=== PATIENT | female | born 1980 | race Caucasian/White ===

== ENCOUNTER 2024-07-18 13:03 | Inpatient (IN) | payer OTHER ==
[2024-07-18 13:24] VITALS: BMI 24.2
[2024-07-18] MEDS ORDERED: chlordiazePOXIDE HCL 25 MG CAPSULE PO PRN (13:56)
[2024-07-18] MEDS ORDERED: NALOXONE (NARCAN) HCL 4 MG/0.1 ML SPRAY NS PRN (13:58)
[2024-07-18] MEDS ORDERED: LOPERAMIDE HCL 2 MG CAPSULE PO PRN (13:58)
[2024-07-18] MEDS ORDERED: guaiFENesin 600 MG TABLET.ER (FP) PO PRN (13:58)
[2024-07-18] MEDS ORDERED: BENZONATATE 200 MG CAPSULE PO PRN (13:58)
[2024-07-18] MEDS ORDERED: IBUPROFEN 400 MG TABLET (FP) PO PRN (13:58)
[2024-07-18] MEDS ORDERED: POLYETHYLENE GLYCOL (HEALTHYLAX) 3350 17 GM PACKET PO PRN (13:58)
[2024-07-18] MEDS ORDERED: MAG HYDROX/AL HYDROX/SIMETH 30 ML UNIT-DOSE CUP PO PRN (13:58)
[2024-07-18] MEDS ORDERED: P-EPHED 60MG/TRIPROLIDI 2.5MG TABLET PO PRN (13:58)
[2024-07-18] MEDS ORDERED: ONDANSETRON *ODT* 4 MG TABLET SL PRN (13:58)
[2024-07-18] MEDS ORDERED: BISMUTH SUBSALICYLATE 524 MG/30 ML PO PRN (13:58)
[2024-07-18] MEDS ORDERED: DICYCLOMINE HCL 10 MG CAPSULE PO PRN (13:58)
[2024-07-18] MEDS ORDERED: MAGNESIUM HYDROX 2400MG/30ML ORAL SUSPENSION 30 ML CUP PO PRN (13:58)
[2024-07-18] MEDS ORDERED: BACITRACIN ZINC 15 GM TUBE TOPICAL OINTMENT TP PRN (14:11)
[2024-07-18] MEDS ORDERED: methaDONE HCL 10 MG TABLET (FOR DETOX USE ONLY) ONE (14:35)
[2024-07-18] MEDS ORDERED: BUPRENORPHINE/NALOXONE 0.5 MG/0.125 MG FILM ONE (14:36)
[2024-07-18] MEDS: BUPRENORPHINE/NALOXONE 0.5 MG/0.125 MG FILM SL ONE ×2 (14:39→22:11)
[2024-07-18] MEDS: methaDONE HCL 10 MG TABLET (FOR DETOX USE ONLY) PO ONE (14:40)
[2024-07-18] MEDS: GABAPENTIN 400 MG CAPSULE PO SCH (16:04)
[2024-07-18] MEDS: IBUPROFEN 600 MG TABLET (FP) PO PRN (16:04)
[2024-07-18] MEDS: METHOCARBAMOL 500 MG TABLET PO PRN (16:05)
[2024-07-18] MEDS: chlordiazePOXIDE HCL 25 MG CAPSULE PO SCH (16:05)
[2024-07-18] MEDS: NICOTINE 14 MG/24 HOURS TOPICAL PATCH TD SCH (16:56)
[2024-07-18] MEDS: ASPIRIN 325 MG ENTERIC COATED TABLET (FP) PO SCH (17:52)
[2024-07-18] MEDS: NICOTINE POLACRILEX 2 MG GUM BUC PRN (21:13)
[2024-07-18] MEDS: MELATONIN 5 MG TABLETS PO SCH (22:11)
[2024-07-18] MEDS: THIAMINE 100 MG TABLET PO SCH (22:11)
[2024-07-18] MEDS: traZODone HCL 50 MG TABLET (FP) PO SCH (22:11)
[2024-07-19 09:32] LABS: CHLORIDE 106 mmol/L (98-107); SODIUM 144 mmol/L (136-145)
[2024-07-19 09:34] LABS: CALCIUM 8.8 mg/dL (8.5-10.1); HEMATOCRIT 38.4 % (34.1-44.9); HEMOGLOBIN 12.6 g/dL (11.2-15.7); MCHC 32.8 g/dl (32.2-35.5); MEAN CELL VOLUME 88.5 fl (79.4-94.8); MEAN PLT VOLUME 9.9 fl (9.4-12.3); PLATELET COUNT 373 x10^3/uL (182-369); RDW 13.6 % (12.2-17.1)
[2024-07-19 09:35] LABS: ALBUMIN 2.8 g/dl (3.4-5.0); ANION GAP 6 mmol/L (4-13); BLOOD UREA NITROGEN 7.9 mg/dL (7-18); CO2 32 mmol/L (21-32); GLUCOSE,RANDOM 103 mg/dL (74-106)
[2024-07-19 09:38] LABS: CREATININE 0.4 mg/dL (0.55-1.3); SGOT/AST 10 U/L (15-37); SGPT/ALT 13 U/L (13-61)
[2024-07-19 09:41] LABS: ALK PHOS 47 U/L (45-117); TOT PROT 4.9 g/dl (6.4-8.2)
[2024-07-19] MEDS: NICOTINE 21 MG/24 HOURS TOPICAL PATCH TD SCH (09:47)
[2024-07-19] MEDS: PRENATAL VITAMINS W/ FOLIC ACID TABLET (FP) PO SCH (09:47)
[2024-07-19] MEDS: BUPRENORPHINE/NALOXONE 0.5 MG/0.125 MG FILM SL SCH (09:49)
[2024-07-19] MEDS ORDERED: ROSUVASTATIN CA 5 MG TABLET PO SCH (10:00)
[2024-07-19] MEDS: diazePAM 5 MG TABLET PO SCH (10:36)
[2024-07-19] MEDS: POTASSIUM CHLORIDE ORAL LIQUID 20 MEQ/15 ML PO ONE ×2 (10:40→14:40)
[2024-07-19] MEDS: metFORMIN HCL 500 MG TABLET (FP) PO SCH (11:41)
[2024-07-19] MEDS: guaiFENesin/D-METHORPHAN HB 10 ML UNIT-DOSE CUPS PO PRN (11:42)
[2024-07-19] MEDS: BENZOCAINE/MENTHOL (CHLORASEPTIC ) LOZENGE MM PRN (11:43)
[2024-07-19] MEDS: diazePAM 5 MG TABLET PO PRN (14:45)
[2024-07-19] MEDS: MAGNESIUM OXIDE 400 MG TABLET (FP) PO SCH (22:10)
[2024-07-19] MEDS: MELATONIN 5 MG TABLETS PO SCH (22:29)
[2024-07-19] MEDS: ROSUVASTATIN CA 5 MG TABLET PO SCH (23:05)
[2024-07-20] MEDS ORDERED: chlordiazePOXIDE HCL 25 MG CAPSULE PO SCH (05:00)
[2024-07-20] MEDS ORDERED: BUPRENORPHINE/NALOXONE 2 MG/0.5 MG FILM PACKET SL SCH (10:00)
[2024-07-20] MEDS ORDERED: methaDONE HCL 10 MG TABLET (FOR DETOX USE ONLY) PO ONE (10:00)
[2024-07-20] MEDS: hydrOXYzine PAMOATE 25 MG CAPSULE (FP) PO PRN (10:04)
[2024-07-20] MEDS ORDERED: hydrOXYzine PAMOATE 50 MG CAPSULE (FP) PO PRN (10:11)
[2024-07-20] MEDS: methaDONE 40 MG, methaDONE 10 MG PO ONE (10:24)
[2024-07-20] MEDS: HYDROCORTISONE 1% TOPICAL CREAM 30 GM TUBE TP SCH (14:08)
[2024-07-21] MEDS ORDERED: chlordiazePOXIDE HCL 10 MG CAPSULE PO PRN
[2024-07-21] MEDS ORDERED: chlordiazePOXIDE HCL 10 MG CAPSULE PO SCH (05:00)
[2024-07-21] MEDS: diazePAM 5 MG TABLET PO SCH (06:32)
[2024-07-21] MEDS: methaDONE 40 MG, methaDONE 20 MG PO ONE (09:06)
[2024-07-21] MEDS: diphenhydrAMINE HCL 50 MG CAPSULE PO PRN (09:33)
[2024-07-21] MEDS ORDERED: BUPRENORPHINE/NALOXONE 4 MG/1 MG FILM PACKET SL SCH (10:00)
[2024-07-21] MEDS: NICOTINE POLACRILEX 2 MG LOZENGE BC PRN (13:14)
[2024-07-21] MEDS ORDERED: guaiFENesin 200 MG/10 ML 10 ML UNIT-DOSE CUPS PO PRN (15:12)
[2024-07-21] MEDS: BACITRACIN 0.9 GM PACKET TP SCH (15:50)
[2024-07-22] MEDS ORDERED: cloNIDine HCL 0.1 MG TABLET PO PRN
[2024-07-22] MEDS ORDERED: chlordiazePOXIDE HCL 10 MG CAPSULE PO SCH (05:00)
[2024-07-22] MEDS: diazePAM 5 MG TABLET PO SCH (05:47)
[2024-07-22] MEDS: methaDONE 40 MG, methaDONE 30 MG PO ONE (09:43)
[2024-07-22] MEDS ORDERED: BUPRENORPHINE/NALOXONE 8 MG/2 MG FILM PACKET SL SCH (10:00)
[2024-07-22] MEDS ORDERED: methaDONE HCL 10 MG TABLET (FOR DETOX USE ONLY) PO ONE (10:00)
[2024-07-22] MEDS: diazePAM 5 MG TABLET PO ONE (17:33)
[2024-07-22 18:18] VITALS: RESP 16
[2024-07-22 21:33] VITALS: PULSE 98
[2024-07-22] MEDS: ACAMPROSATE CALCIUM 333 MG TABLET.DR PO SCH (22:59)
[2024-07-22] MEDS: ACETAMINOPHEN 325 MG TABLET (FP) PO PRN (23:00)
[2024-07-23] MEDS ORDERED: chlordiazePOXIDE HCL 10 MG CAPSULE PO ONE (05:00)
[2024-07-23] MEDS: diazePAM 5 MG TABLET PO ONE (05:57)
[2024-07-23] MEDS ORDERED: diazePAM 5 MG TABLET PO ONE (06:00)
[2024-07-23 07:08] VITALS: BP 101/60; TEMP 98.9
[2024-07-23] MEDS ORDERED: methaDONE HCL 40 MG DISPERSABLE TABLET PO ONE ×2 (10:00)
[2024-07-23] MEDS ORDERED: BUPRENORPHINE/NALOXONE 8 MG/2 MG FILM PACKET SL SCH (10:00)
== END 2024-07-23 08:52 | disposition home or self-care (01) | DRG 773 ==
LOC: YASAS 13:03 → Y6N 14:48
PROVIDERS: ADMIT Neuromusculoskeletal Medicine & OMM; ATTEND Allergy & Immunology
PROC: HZ2ZZZZ Detoxification Services for Substance Abuse Treatment (ICD-10-PCS; principal; 2024-07-18)
DX: F11.23 Opioid dependence with withdrawal (principal); F10.230 Alcohol dependence with withdrawal, uncomplicated; F13.230 Sedative, hypnotic or anxiolytic dependence with withdrawal, uncomplicated; F14.20 Cocaine dependence, uncomplicated; F12.20 Cannabis dependence, uncomplicated; F17.290 Nicotine dependence, other tobacco product, uncomplicated; F33.1 Major depressive disorder, recurrent, moderate; E87.6 Hypokalemia; E78.5 Hyperlipidemia, unspecified; E11.9 Type 2 diabetes mellitus without complications; Z79.84 Long term (current) use of oral hypoglycemic drugs; L25.9 Unspecified contact dermatitis, unspecified cause; Z86.718 Personal history of other venous thrombosis and embolism
CPT/HCPCS: 36415; 71045-TC-FY; 80053; 80305; 80307; 81025; 82962; 84132; 85027; 86780; 93005; 93010